=== PATIENT | male | born 1990 | race Two or more races ===

== ENCOUNTER 2019-04-12 17:04 | Emergency (ER) | payer MEDICAID, OTHER ==
[~2019-04-12] VITALS: Ht 170.2 cm; Wt 72.7 kg
[2019-04-12] MEDS ORDERED: normal saline 1000ML IV soln IVB ONE (17:20)
--- NOTE | 2019-04-12 17:39 | NUR ---
PATIENT AMBULATORY TO ER #15 WITH C/O NOT FEELING WELL. STATES HE HAS BEEN OUT IN THE SUN FOR THE PAST 2 DAYS AND PRIOR TO THAT, HE THINKS HE WAS IN HALF-WAY. STATES HE IS HOMELESS AT PRESENT. PATIENT IS UNKEMPT AND POOR HYGIENE. UNABLE TO ANSWER QUESTIONS APPROPRIATELY.
[2019-04-12 17:50] LABS: BASOPHILS % (AUTO) 0.3 % (0-1); EOSINOPHILS % (AUTO) 0.2 % (0-6); HEMOGLOBIN 16.9 g/dl (14.0-17.9); MEAN CORPUSCULAR HEMOGLOBIN 30.7 PG (27.0-31.0); MEAN CORPUSCULAR HGB CONC 34.4 g/dL (33.0-36.5); MEAN CORPUSCULAR VOLUME 89.3 FL (78-98); MEAN PLATELET VOLUME 7.6 FL (7.4-10.4); MONOCYTES # (AUTO) 1.5 X10'3 (0-0.9); MONOCYTES % (AUTO) 13.1 % (2-12); NEUTROPHILS # (AUTO) 6.9 X10'3 (1.8-7.7); NEUTROPHILS % (AUTO) 60.4 % (42-75); PLATELET COUNT 362 X10'3 (140-440); RED BLOOD COUNT 5.49 X10'6 (4.70-6.10); RED CELL DISTRIBUTION WIDTH 14.3 % (11.5-14.5); WHITE BLOOD COUNT 11.5 X10'3 (4.5-11.0)
--- NOTE | 2019-04-12 17:58 | NUR ---
BG PER ACCUCHECK = 86.
[2019-04-12 18:13] LABS: ALANINE AMINOTRANSFERASE 36 U/L (12-78); ALBUMIN 4.4 G/DL (3.4-5.0); ALKALINE PHOSPHATASE 82 IU/L (46-116); ANION GAP 10 (8-16); ASPARTATE AMINO TRANSFERASE 25 U/L (10-37); BILIRUBIN,TOTAL 0.8 MG/DL (0.1-1.0); BLOOD UREA NITROGEN 21 MG/DL (7-18); BUN/CREATININE RATIO 16.2 (5.4-32.0); CALCIUM 9.6 MG/DL (8.5-10.1); CHLORIDE 106 MMOL/L (99-107); ETHANOL < 0.010 GM/DL (0.0-0.010); GLUCOSE 103 MG/DL (70-104); POTASSIUM 3.7 MMOL/L (3.5-5.1); SODIUM 143 MMOL/L (135-145); TOTAL CARBON DIOXIDE 26.6 MMOL/L (24-32); TOTAL PROTEIN 8.6 G/DL (6.4-8.2); eGFR 65 ML/MIN
[2019-04-12 19:24] VITALS: BP 140/88
== END 2019-04-12 19:26 | disposition home or self-care (01) ==
LOC: ER 17:07
DX: E86.0 Dehydration (principal); Z59.0 Homelessness
CPT/HCPCS: 36415; 71045; 80053; 80320; 82948; 85025; 93005; 96360; 99284; J7030

== ENCOUNTER 2019-04-13 08:35 | Emergency (ER) | payer MEDICAID, OTHER ==
[~2019-04-13] VITALS: Ht 170.2 cm; Wt 71.4 kg
--- NOTE | 2019-04-13 08:53 | NUR ---
PT IN NO ACUTE DISTRESS AT THIS TIME. PROVIDED SANDWICH AND JUICE.
[2019-04-13 08:58] VITALS: BP 13/85
== END 2019-04-13 09:12 | disposition home or self-care (01) ==
LOC: ER 08:36
DX: T73.0XXA Starvation, initial encounter (principal); Z59.0 Homelessness; Z60.2 Problems related to living alone; X58.XXXA Exposure to other specified factors, initial encounter
CPT/HCPCS: 99281

== ENCOUNTER 2019-04-14 07:01 | Emergency (ER) | payer MEDICAID, OTHER ==
[~2019-04-14] VITALS: Ht 170.2 cm; Wt 75.0 kg
[2019-04-14] MEDS ORDERED: normal saline 1000ML IV soln IVB ONE (07:25)
[2019-04-14 07:55] LABS: BASOPHILS % (AUTO) 0.3 % (0-1); EOSINOPHILS # (AUTO) 0.1 X10'3 (0-0.9); EOSINOPHILS % (AUTO) 1.5 % (0-6); HEMATOCRIT 46.8 % (42.0-52.0); HEMOGLOBIN 15.8 g/dl (14.0-17.9); LYMPHOCYTES # (AUTO) 2.2 X10'3 (1.1-4.8); LYMPHOCYTES % (AUTO) 22.3 % (21-51); MEAN CORPUSCULAR HEMOGLOBIN 30.4 PG (27.0-31.0); MEAN CORPUSCULAR HGB CONC 33.7 g/dL (33.0-36.5); MEAN CORPUSCULAR VOLUME 90.3 FL (78-98); MEAN PLATELET VOLUME 7.4 FL (7.4-10.4); MONOCYTES # (AUTO) 1.3 X10'3 (0-0.9); MONOCYTES % (AUTO) 13.1 % (2-12); NEUTROPHILS # (AUTO) 6.2 X10'3 (1.8-7.7); NEUTROPHILS % (AUTO) 62.8 % (42-75); PLATELET COUNT 320 X10'3 (140-440); RED BLOOD COUNT 5.19 X10'6 (4.70-6.10); WHITE BLOOD COUNT 9.9 X10'3 (4.5-11.0)
[2019-04-14 08:08] LABS: ALANINE AMINOTRANSFERASE 36 U/L (12-78); ALBUMIN 3.8 G/DL (3.4-5.0); ALKALINE PHOSPHATASE 71 IU/L (46-116); ANION GAP 7 (8-16); ASPARTATE AMINO TRANSFERASE 18 U/L (10-37); BILIRUBIN,TOTAL 0.7 MG/DL (0.1-1.0); BLOOD UREA NITROGEN 15 MG/DL (7-18); BUN/CREATININE RATIO 15.6 (5.4-32.0); CALCIUM 8.7 MG/DL (8.5-10.1); CHLORIDE 109 MMOL/L (99-107); CREATININE 0.96 MG/DL (0.60-1.10); GLUCOSE 110 MG/DL (70-104); LIPASE 365 U/L (73-393); POTASSIUM 3.8 MMOL/L (3.5-5.1); SODIUM 145 MMOL/L (135-145); TOTAL CARBON DIOXIDE 28.6 MMOL/L (24-32); TOTAL PROTEIN 7.6 G/DL (6.4-8.2); eGFR > 90 ML/MIN
[2019-04-14 08:48] VITALS: BP 111/64
== END 2019-04-14 08:55 | disposition home or self-care (01) ==
LOC: ER 07:02
DX: R19.7 Diarrhea, unspecified (principal); R11.10 Vomiting, unspecified; R10.11 Right upper quadrant pain; F15.90 Other stimulant use, unspecified, uncomplicated; Z60.2 Problems related to living alone; Z59.0 Homelessness
CPT/HCPCS: 36415; 80053; 83690; 85025; 99283; J7030

== ENCOUNTER 2019-04-14 15:48 | Emergency (ER) | payer MEDICAID, OTHER ==
[~2019-04-14] VITALS: Ht 170.2 cm; Wt 65.9 kg
[2019-04-14 16:15] VITALS: BP 144/67
== END 2019-04-14 16:18 | disposition home or self-care (01) ==
LOC: ER 15:48
DX: Z00.8 Encounter for other general examination (principal); F15.90 Other stimulant use, unspecified, uncomplicated; Z60.2 Problems related to living alone; Z59.0 Homelessness
CPT/HCPCS: 99283

== ENCOUNTER 2019-04-16 10:18 | Emergency (ER) | payer MEDICAID, OTHER ==
[~2019-04-16] VITALS: Ht 170.2 cm; Wt 72.0 kg
[2019-04-16 10:44] VITALS: BP 116/73
[2019-04-16] MEDS ORDERED: IBUP-1986 PO (11:27)
[2019-04-16] MEDS ORDERED: ibuprofen tablet 400 MG TABLET PO ONE (11:30)
== END 2019-04-16 11:40 | disposition home or self-care (01) ==
LOC: ER 10:18
DX: M79.672 Pain in left foot (principal); M79.671 Pain in right foot; F15.90 Other stimulant use, unspecified, uncomplicated; Z60.2 Problems related to living alone; Z59.0 Homelessness; Z79.899 Other long term (current) drug therapy
CPT/HCPCS: 99283